=== PATIENT | female | born 1995 | race Caucasian/White ===

== ENCOUNTER 2020-04-24 05:25 | Day surgery (SDC) | payer MEDICAID ==
[2020-04-20 15:14] LABS: BASOPHILS # (AUTO) 0.1 X10'3 (0-0.2); BASOPHILS % (AUTO) 0.7 % (0-1); EOSINOPHILS # (AUTO) 0.4 X10'3 (0-0.9); LYMPHOCYTES # (AUTO) 2.9 X10'3 (1.1-4.8); LYMPHOCYTES % (AUTO) 33.6 % (21-51); MEAN CORPUSCULAR HEMOGLOBIN 30.4 PG (27.0-31.0); MEAN CORPUSCULAR HGB CONC 34.3 g/dL (33.0-36.5); MEAN CORPUSCULAR VOLUME 88.7 FL (78-98); MEAN PLATELET VOLUME 7.8 FL (7.4-10.4); MONOCYTES # (AUTO) 0.7 X10'3 (0-0.9); MONOCYTES % (AUTO) 8.5 % (2-12); NEUTROPHILS # (AUTO) 4.5 X10'3 (1.8-7.7); NEUTROPHILS % (AUTO) 52.2 % (42-75); PRE OP HEMATOCRIT 39.9 % (35.0-45.0); PRE OP HEMOGLOBIN 13.7 g/dL (12.0-16.0); PRE OP PLATELET COUNT 288 X10'3 (140-440); RED CELL DISTRIBUTION WIDTH 13.1 % (11.5-14.5)
[2020-04-20 15:28] LABS: ALBUMIN 3.9 G/DL (3.4-5.0); ALBUMIN/GLOBULIN RATIO 1.1 (1.1-1.5); ALKALINE PHOSPHATASE 115 IU/L (46-116); BLOOD UREA NITROGEN 13 MG/DL (7-18); BUN/CREATININE RATIO 19.1 (6.6-38.0); CHLORIDE 107 MMOL/L (99-107); CREATININE 0.68 MG/DL (0.40-0.90); PRE OP ANION GAP 7 (8-16); PRE OP AST 15 U/L (10-37); PRE OP BILIRUB, TOTAL 0.1 MG/DL (0.0-1.0); PRE OP GLUCOSE 93 MG/DL (70-104); PRE OP POTASSIUM 3.7 MMOL/L (3.4-5.1); PRE OP SODIUM 142 MMOL/L (135-145); TOTAL CARBON DIOXIDE 28.4 MMOL/L (24-32); TOTAL PROTEIN 7.6 G/DL (6.4-8.2); eGFR > 90 ML/MIN
[2020-04-20 15:35] LABS: PRE OP ALT 15 U/L (30-65)
[2020-04-20 16:17] LABS: HCG SERUM QL NEGATIVE
[2020-04-24] VITALS (9 sets, daily range): BP systolic 101–122; BP diastolic 50–94
[~2020-04-24] VITALS: Ht 165.1 cm; Wt 68.0 kg
[~2020-04-24 05:25] MED LIST: QUET-1 PO; ringers solution, lacted 1,000 ML IV SCH
[2020-04-24] MEDS ORDERED: famotidine 20mg tablet PO ONE (05:30)
[2020-04-24] MEDS ORDERED: LIDOcaine 1% (10mg/ml) 2ml vial ONE (05:53)
[2020-04-24] MEDS ORDERED: fentaNYL/PF 50MCG/1 ML 2ML syringe ONE (07:14)
[2020-04-24] MEDS ORDERED: ondansetron/PF 4mg/2ml inj ONE (07:15)
[2020-04-24] MEDS ORDERED: propofol inj 20 ML IV ONE (07:15)
[2020-04-24] MEDS ORDERED: dexamethasone sod phosphate 4mg/ml inj. ONE (07:15)
[2020-04-24] MEDS ORDERED: rocuronium 10mg/ml inj IV ONE (07:15)
[2020-04-24] MEDS ORDERED: midazolam 2 mg/2 ml injection ONE ×2 (07:15→08:44)
[2020-04-24] MEDS ORDERED: ringers solution, lacted 1,000 ML IV SCH (07:19)
[2020-04-24] MEDS ORDERED: ondansetron/PF 4mg/2ml inj IV PRN (07:20)
[2020-04-24] MEDS ORDERED: morphine 4 MG/ML inj SYRINge IV PRN (07:20)
[2020-04-24] MEDS ORDERED: meperidine/PF 25mg/ml syringe IV PRN ×3 (07:20)
[2020-04-24] MEDS ORDERED: proCHLORperazine 10 MG/2 ml inj IV PRN (07:20)
[2020-04-24] MEDS ORDERED: morphine 2 MG/ML inj. syringe IV PRN (07:20)
[2020-04-24] MEDS ORDERED: sevoflurane 250ml liquid IH ONE (07:36)
[2020-04-24] MEDS ORDERED: glycopyrrolate 0.2mg/ml inj ONE (08:24)
[2020-04-24] MEDS ORDERED: neostigmine methylsulfate 1 MG/ML 10ml vial ONE (08:24)
--- NOTE | 2020-04-24 08:26 | NUR ---
Received from OR via [facility] , accompanied by Anesthesiologist KOBE and report given by Anesthesiolgist. PATIENT WITH 20G PIV IN RIGHT UE RUNNING LR AT 100. 4 LAP SITES TO ABDOMEN THAT ARE CDI. VSS Addendum: 04/24/20 at 0838 by Arthur Perez RN, RN Amended: Links added.
--- NOTE | 2020-04-24 08:40 | NUR ---
PATIENT WITH SEIZURE ACTIVITY. MD BULLOCK CALLED. ORDERS RECIEVED. VSS DURING EVENT. RESTING COMFORTABLY AT THIS TIME FOLLOWING MED ADMINISTRATION. WILL CONTINUE TO ASSESS. Addendum: 04/24/20 at 0853 by Arthur Perez RN, RN Amended: Links added.
[2020-04-24] MEDS ORDERED: LORazepam 2 mg/ml vial ONE (08:42)
[2020-04-24] MEDS ORDERED: MIDAZolam 5mg/ml 2ml vial IV ONE (08:45)
--- NOTE | 2020-04-24 09:26 | NUR ---
Report called to receiving nurse [email or web address] ERICKSON. Transferred via GURNEY WITH ONE BAG OF Belongings . Special Issues communicated to receiving nurse. ANGELIC. ALL BELONGINGS AND DC PAPERWORK SENT WITH PATIENT. Addendum: 04/24/20 at 0928 by Arthur Perez RN, RN Amended: Links added.
[2020-04-24] MEDS ORDERED: traMADol 50MG tablet PO ONE (09:35)
== END 2020-04-24 11:23 | disposition home or self-care (01) ==
LOC: PAS 05:25
PROVIDERS: ATTEND Obstetrics & Gynecology
DX: Z30.2 Encounter for sterilization (principal); F32.9 Major depressive disorder, single episode, unspecified; F43.10 Post-traumatic stress disorder, unspecified; F17.210 Nicotine dependence, cigarettes, uncomplicated; Z79.899 Other long term (current) drug therapy; Z98.890 Other specified postprocedural states; Z11.59 Encounter for screening for other viral diseases
CPT/HCPCS: 36415; 58670; 80053; 82948; 84703; 85025; J1100; J2001; J2060; J2175; J2250; J2405; J2704; J2710; J3010; J7120; U0003; A4618; J3490